=== PATIENT | female | born 1970 | race Caucasian/White ===

== ENCOUNTER 2017-02-06 00:43 | Emergency (ER) | payer OTHER ==
[~2017-02-06] VITALS: Ht 160 cm; Wt 53.5 kg
[2017-02-06] MEDS ORDERED: CLINDAMYCIN HC300 MG PO (01:10)
--- NOTE | 2017-02-06 01:15 | NUR ---
Seen and received pt from triage for sorethroat.
[2017-02-06] MEDS ORDERED: ACETAMINOPHEN ES 500 MG TABLET PO ONE (01:30)
[2017-02-06] MEDS ORDERED: LIDOCAINE VISCUS 2% 15 ML UDC MM ONE (01:30)
[2017-02-06] MEDS ORDERED: LIDOCAINE 1%-EPI 1:100,000 20 ML VIAL TP ONE (01:30)
[2017-02-06] MEDS ORDERED: IBUPROFEN 600 MG TABLET PO ONE (01:30)
[2017-02-06] MEDS ORDERED: DEXAMETHASONE 4 MG TABLET PO ONE (01:30)
--- NOTE | 2017-02-06 01:30 | NUR ---
Prepped lidocaine, needles, syringes, etc for peritonsillar abscess drain per MD's order.
[2017-02-06] MEDS ORDERED: LIDOCAINE VISCUS 2% 15 ML UDC ONE (02:08)
[2017-02-06] MEDS ORDERED: IBUPROFEN 600 MG TABLET ONE (02:11)
[2017-02-06] MEDS ORDERED: DEXAMETHASONE 4 MG TABLET ONE (02:11)
[2017-02-06] MEDS ORDERED: ACETAMINOPHEN ES 500 MG TABLET ONE (02:11)
--- NOTE | 2017-02-06 02:15 | NUR ---
performing abscess drain from pt's peritonsillar area.
[2017-02-06] MEDS ORDERED: CEFTRIAXONE 1 G VIAL ONE (02:38)
--- NOTE | 2017-02-06 02:50 | NUR ---
Patient discharged to home in stable conditon. Written and verbal after care instructions given. Patient verbalizes understanding of instructions.
[2017-02-06 02:54] VITALS: BP 114/90; PULSE 120; RESP 18; O2SAT 98
== END 2017-02-06 02:50 | disposition home or self-care (01) ==
LOC: ER 00:52
PROC: 0C9P3ZZ Drainage of Tonsils, Percutaneous Approach (ICD-10-PCS; principal; 2017-02-06)
DX: J36 Peritonsillar abscess (principal); Z88.2 Allergy status to sulfonamides; Z88.7 Allergy status to serum and vaccine
CPT/HCPCS: 42999; 99284; A4663; J3490; J8540